=== PATIENT | female | born 1975 | race Caucasian/White ===

== ENCOUNTER → 2017-04-06 | Outpatient (CLI) | payer OTHER ==
[2017-04-06 12:25] LABS: ALT/SGPT 15 U/L (12-78); BLOOD UREA NITROGEN 11 mg/dl (7-18); BUN/CREATININE RATIO 12.8 (10-20); CALCIUM 8.6 mg/dl (8.5-10.1); CARBON DIOXIDE 24 mmol/L (21-32); CHLORIDE 105 mmol/L (98-107); CHOLESTEROL 134 mg/dl (0-200); CREATININE 0.87 mg/dl (0.60-1.20); GLUCOSE 159 mg/dl (70-99); POTASSIUM 4.6 mmol/L (3.5-5.1); SODIUM 137 mmol/L (136-145); TRIGLYCERIDES 71 mg/dl (0-150); VERY LOW DENSITY LIPOPROT CALC 14 mg/dl
[2017-04-06 12:34] LABS: ESTIMATED AVERAGE GLUCOSE 157 mg/dl; HA1C FLAG Normal (Normal)
[2017-04-06 12:36] LABS: ALKALINE PHOSPHATASE 90 U/L (45-117); AST/SGOT 13 U/L (15-37); CHOLESTEROL/HDL RATIO 1.7; HDL CHOLESTEROL 77 mg/dl; LDL CHOLESTEROL CALCULATED 43 mg/dl
[2017-04-06 13:05] LABS: RATIO 4.3 mcg/mg (0-30.0)
== END | disposition home or self-care (01) ==
LOC: C.LABBFT 07:54
PROVIDERS: ATTEND Nurse Practitioner
DX: E11.9 Type 2 diabetes mellitus without complications (principal); E03.9 Hypothyroidism, unspecified

== ENCOUNTER → 2017-09-13 | Outpatient (CLI) | payer OTHER ==
--- NOTE | 2017-09-14 08:04 | MAMMOGRAPHY REPORT ---
BILATERAL FIRST EVER DIGITAL SCREENING MAMMOGRAM TOMOSYNTHESIS WITH CAD: 09/13/2017 CLINICAL HISTORY: Routine screening. Patient has no complaints. TECHNIQUE: Breast tomosynthesis in addition to standard 2D mammography was performed. Current study was also evaluated with a Computer Aided Detection (CAD) system. COMPARISON: No prior exams were available for comparison. BREAST COMPOSITION: The tissue of both breasts is heterogeneously dense, which may obscure small mas ses. FINDINGS: No suspicious masses, calcifications, or areas of architectural distortion are noted in ei ther breast. Scattered bilateral punctate benign-appearing calcifications are noted. IMPRESSION: ACR BI-RADS CATEGORY 2: BENIGN There is no mammographic evidence of malignancy. A 1 year screening mammogram is recommended. The pa tient will receive written notification of the results. Approximately 10% of breast cancers are not detected with mammography. A negative mammographic report should not delay biopsy if a clinically suggestive mass is present. Lilly Purdy M.D. ah/:09/13/2017 15:13:26 Assistant Portfolio Manager: Nimco LOVETT(Alvino)([place]), [facility] letter sent: Normal 1/2 BI-RADS Code: ACR BI-RADS Category 2: Benign
== END | disposition home or self-care (01) ==
LOC: C.MAMM 14:50
PROVIDERS: ATTEND Internal Medicine
DX: Z12.31 Encounter for screening mammogram for malignant neoplasm of breast (principal)

== ENCOUNTER → 2017-10-13 | Outpatient (CLI) | payer OTHER ==
[2017-10-13 12:57] LABS: HEMOGLOBIN A1C 5.3 % (4.5-5.6)
[2017-10-13 14:45] LABS: ALBUMIN 3.8 gm/dl (3.4-5.0); ALT/SGPT 29 U/L (12-78); AST/SGOT 17 U/L (15-37); BLOOD UREA NITROGEN 12 mg/dl (7-18); CALCIUM 8.7 mg/dl (8.5-10.1); CARBON DIOXIDE 26 mmol/L (21-32); CREATININE 0.87 mg/dl (0.60-1.20); GLUCOSE 91 mg/dl (70-99); POTASSIUM 4.4 mmol/L (3.5-5.1); SODIUM 135 mmol/L (136-145)
[2017-10-13 14:55] LABS: ALKALINE PHOSPHATASE 77 U/L (45-117); TOTAL PROTEIN 7.5 gm/dl (6.4-8.2)
== END | disposition home or self-care (01) ==
LOC: C.LABBFT 08:57
PROVIDERS: ATTEND Nurse Practitioner
DX: E03.9 Hypothyroidism, unspecified (principal); E11.9 Type 2 diabetes mellitus without complications

== ENCOUNTER → 2017-10-18 | Outpatient (CLI) | payer OTHER ==
--- NOTE | 2017-10-18 14:28 | DIAGNOSTIC IMAGING REPORT ---
CHEST 2 VIEWS ROUTINE HISTORY: Palpitations. Short of breath. COMPARISON: None. FINDINGS: The lungs are clear. Cardiac silhouette is normal in size. No pleural effusions. No pneumothorax. IMPRESSION: No acute process. Electronically signed by: Cortez Conti M.D. 10/18/2017 2:26 PM Dictated Date/Time: 10/18/2017 2:24 PM
== END | disposition home or self-care (01) ==
LOC: C.RAD1850 14:04
PROVIDERS: ATTEND Nurse Practitioner
DX: R00.2 Palpitations (principal)

== ENCOUNTER → 2017-10-18 | Outpatient (CLI) | payer OTHER ==
[2017-10-18 12:56] LABS: BASO % 0.2 %; BASO ABS # 0.01 K/uL (0-0.2); EOS % 1.2 %; EOS ABS # 0.05 K/uL (0-0.5); HEMATOCRIT 38.8 % (37-47); HEMOGLOBIN 13.8 g/dL (12.0-16.0); IG# 0.01 K/uL (0.00-0.02); LYMPH % 29.4 %; LYMPH ABS # 1.21 K/uL (1.2-3.4); MEAN CELL VOLUME 82.7 fL (80-100); MEAN CORPUSCULAR HEMOGLOBIN 29.4 pg (25-34); MEAN CORPUSCULAR HGB CONC 35.6 g/dl (32-36); MONO % 6.6 %; MONO ABS # 0.27 K/uL (0.11-0.59); NEUT % 62.4 %; NEUT ABS # 2.57 K/uL (1.4-6.5); PLATELET COUNT 310 K/uL (130-400); RED CELL DISTRIBUTION WIDTH CV 12.7 % (11.5-14.5); RED CELL DISTRIBUTION WIDTH SD 37.9 fL (36.4-46.3); WHITE BLOOD COUNT 4.12 K/uL (4.8-10.8)
[2017-10-19 11:48] LABS: ANA SCREEN TC 249X POSITIVE (NEGATIVE)
== END | disposition home or self-care (01) ==
LOC: C.LABBFT 10:48
PROVIDERS: ATTEND Nurse Practitioner
DX: R61 Generalized hyperhidrosis (principal); M25.50 Pain in unspecified joint; E11.9 Type 2 diabetes mellitus without complications

== ENCOUNTER → 2017-11-07 | Outpatient (CLI) | payer OTHER ==
--- NOTE | 2017-11-07 10:16 | DIAGNOSTIC IMAGING REPORT ---
L HAND MIN 3 VIEWS ROUTINE CLINICAL HISTORY: ARTHRALGIA,NIGHT SWEATS,POSITIVE ALDO COMPARISON: None FINDINGS: Alignment of the left hand is anatomic. No fracture or suspicious lesion is identified. There are no erosions. Carpal bones are intact. 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 IMPRESSION: 1. No acute fracture. 2. No radiographic evidence of an erosive/inflammatory arthropathy. Electronically signed by: Momo Chaparro M.D. 11/07/2017 10:15 AM Dictated Date/Time: 11/07/2017 10:14 AM
--- NOTE | 2017-11-07 10:17 | DIAGNOSTIC IMAGING REPORT ---
R HIP UNILATERAL 2 VIEWS CLINICAL HISTORY: Bilateral hip pain. Arthralgias. COMPARISON: None FINDINGS: Alignment of the right hip is anatomic. No fracture or suspicious lesion. There is no evidence for avascular necrosis. Hip joint space is preserved. There is minimal osteophytosis. No erosions are identified. IMPRESSION: 1. No acute fracture. 2. Preserved right hip joint space with minimal osteophytosis. 3. No erosions identified. Electronically signed by: Momo Chaparro M.D. 11/07/2017 10:16 AM Dictated Date/Time: 11/07/2017 10:15 AM
--- NOTE | 2017-11-07 10:18 | DIAGNOSTIC IMAGING REPORT ---
L HIP UNILATERAL 2 VIEWS CLINICAL HISTORY: ARTHRALGIA,NIGHT SWEATS,POSITIVE ALDO COMPARISON: None FINDINGS: Alignment of the left hip is anatomic. No fractures suspicious lesion. Joint spaces preserved. No erosions are identified. There is no evidence for avascular necrosis. 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 IMPRESSION: 1. No acute fracture. 2. No erosions. 3. Preserved left hip joint space. Electronically signed by: Momo Chaparro M.D. 11/07/2017 10:16 AM Dictated Date/Time: 11/07/2017 10:16 AM
--- NOTE | 2017-11-07 10:21 | DIAGNOSTIC IMAGING REPORT ---
R HAND MIN 3 VIEWS ROUTINE CLINICAL HISTORY: 41 years-old Female presenting with M25.50 Arthralgia of multiple [id number] Night [id number] Positive. TECHNIQUE: Frontal, oblique, and lateral views of the right hand were obtained. COMPARISON: Comparison made to plain radiographs of the left hand performed the same day. FINDINGS: No regional osteopenia or erosions are evident. No acute fracture or malalignment. No advanced degenerative change. No radiographic soft tissue abnormality. IMPRESSION: No acute osseous injury or evidence of inflammatory arthropathy. Electronically signed by: Shane Bowling M.D. 11/07/2017 10:20 AM Dictated Date/Time: 11/07/2017 10:18 AM
[2017-11-07 10:43] LABS: TRANSFERRIN 351 mg/dl (200-360)
== END | disposition home or self-care (01) ==
LOC: C.LAB1850 09:05
PROVIDERS: ATTEND Internal Medicine Rheumatology
DX: M25.551 Pain in right hip (principal); M25.552 Pain in left hip; R61 Generalized hyperhidrosis; R76.8 Other specified abnormal immunological findings in serum; M25.50 Pain in unspecified joint